=== PATIENT | male | born 1960 | race Caucasian/White ===

== ENCOUNTER → 2021-08-15 | Outpatient (CLI) | payer MEDICARE, MEDICAID | END | disposition home or self-care (01) | LOC: LAB 09:44 | PROVIDERS: ATTEND Surgery | DX: Z20.822 Contact with and (suspected) exposure to COVID-19 (principal) | CPT/HCPCS: 87426 ==

== ENCOUNTER → 2021-08-16 | Day surgery (SDC) | payer MEDICARE, MEDICAID ==
[~2021-08-16] VITALS: Ht 177.8 cm; Wt 81.2 kg
[~2021-08-16] MED LIST: BACITRACIN 15GM TUBE TOP ONE; BUPIVACAINE HCL/PF 0.5% (5MG/ML) 10ML ONE; CEFAZOLIN SODIUM 1000MG/VIAL ONE; FENTANYL CITRATE/PF 50MCG/ML 2ML VIAL ONE; GLYCOPYRROLATE 0.2 MG/ML 2ML VIAL ONE; HYDROCODONE/ACETAMINOPHEN 5/325MG TABLET PO NR; HYDROCODONE/ACETAMINOPHEN 5/325MG TABLET PO SCH; HYDROMORPHONE HCL/PF 2MG/ML CPJ IV PRN; KETOROLAC 30MG/ML VIAL ONE; LACTATED RINGERS 1,000 ML IV SCH; LIDOCAINE HCL 1% 10 MG/ML 10ML VIAL ONE; MEPERIDINE HCL/PF 25MG/ML CPJ IV PRN; MIDAZOLAM HCL 2 MG/2 ML VIAL ONE; ONDANSETRON HCL 4MG/2ML INJ IV PRN; ONDANSETRON HCL 4MG/2ML INJ ONE; PHENYLEPHRINE HCL 10 MG/ML 1ML (IV VIAL) IV ONE; PROPOFOL 200MG/20ML VIAL IV ONE; ROCURONIUM BROMIDE 10MG/ML VIAL 5ML IV ONE; SODIUM CHLORIDE 0.9% 1,000 ML IV ONE; SUCCINYLCHOLINE CHLORIDE 200MG/10ML IV ONE
[2021-08-16 09:30] VITALS: BP 128/95
== END | disposition home or self-care (01) ==
LOC: OR 06:15
PROVIDERS: ATTEND Surgery
DX: K64.8 Other hemorrhoids (principal); I10 Essential (primary) hypertension; E78.00 Pure hypercholesterolemia, unspecified; K21.9 Gastro-esophageal reflux disease without esophagitis; D64.9 Anemia, unspecified; Z79.899 Other long term (current) drug therapy; Z98.890 Other specified postprocedural states
CPT/HCPCS: 46947; 88304; J0330; J0690; J1885; J2250; J2370; J2405; J2704; J3010; J3490

== ENCOUNTER 2025-04-05 15:04 | Emergency (ER) | payer MEDICARE, MEDICAID ==
[~2025-04-05] VITALS: Ht 170.2 cm; Wt 82.0 kg
[2025-04-05 15:07] VITALS: BP 138/76; PULSE 85; RESP 16; TEMP 36.6; O2SAT 99
[2025-04-05] MEDS: METHOCARBAMOL 500MG TABLET PO ONE (15:24)
[2025-04-05] MEDS: KETOROLAC 30MG/ML VIAL IM ONE (15:24)
[2025-04-05] MEDS ORDERED: METH-653 MT (16:33)
[2025-04-05] MEDS ORDERED: LIDO700A30 TP (16:33)
[2025-04-05] MEDS ORDERED: IBUP-1455 MT (16:33)
== END 2025-04-05 16:56 | disposition home or self-care (01) ==
LOC: ER 15:04
DX: S29.012A Strain of muscle and tendon of back wall of thorax, initial encounter (principal); X58.XXXA Exposure to other specified factors, initial encounter; Y93.89 Activity, other specified; Y92.89 Other specified places as the place of occurrence of the external cause; Y99.8 Other external cause status
CPT/HCPCS: 99283; 72070; 96372; J1885